=== PATIENT | male | born 1980 | race Caucasian/White ===

== ENCOUNTER 2016-09-18 09:36 | Outpatient (CLI) | payer MEDICAID | END 2016-09-18 09:37 | disposition home or self-care (01) | DX: E78.5 Hyperlipidemia, unspecified (principal); Z79.899 Other long term (current) drug therapy ==

== ENCOUNTER 2016-12-17 16:44 | Emergency (ER) | payer MEDICAID ==
[2016-12-17 16:52] VITALS: BP 148/87
--- NOTE | 2016-12-17 17:11 | ED Physician Documentation ---
PD HPI UPPER EXT INJURY - Stated complaint Stated Complaint: L HAND LAC - Chief complaint Chief Complaint: Ext Problem - History obtained from History obtained from: Patient - History of Present Illness Location: Left (He is up-to-date on tetanus, cut himself while washing dishes just prior to arrival at home. He has a small laceration to the left hand and was having trouble with bleeding.) Review of Systems Constitutional: reports: Reviewed and negative Cardiac: reports: Reviewed and negative Respiratory: reports: Reviewed and negative PD PAST MEDICAL HISTORY - Past Medical History Neuro: Headache/migraine : Kidney stones HEENT: Other Psych: Depression - Past Surgical History Past Surgical History: No HEENT: Tonsil/Adenoidectomy - Present Medications Home Medications: Ambulatory Orders Medication Instructions Recorded Confirmed Fluoxetine HCl 60 mg PO DAILY 01/31/14 12/17/16 Quetiapine Fumarate [Seroquel Xr] 150 mg PO DAILY 01/31/14 12/17/16 Sumatriptan Succinate [Imitrex] 100 mg PO BID PRN 01/31/14 12/17/16 rOPINIRole [Requip] 25 mg PO DAILY 01/31/14 12/17/16 Pravastatin Sodium 20 mg PO DAILY 12/17/16 12/17/16 - Allergies Allergies/Adverse Reactions: Allergies Allergy/AdvReac Type Severity Reaction Status Date / Time No Known Drug Allergies Allergy Verified 01/31/14 22:45 - Social History Does the pt smoke?: No Smoking Status: Never smoker Does the pt drink ETOH?: No Does the pt have substance abuse?: No - Immunizations Immunizations are current?: Yes PD ED PE NORMAL - Vitals Vital signs reviewed: Yes - General General: Alert and oriented X 3, No acute distress - Extremities Extremities: Other (On the palmar surface of the left hand there is a very shallow flap laceration which does not merit suturing, it was irrigated and dressed with Gelfoam and wrap during exam.) - Neuro Neuro: Alert and oriented X 3, Normal speech - Psych Psych: Normal mood, Normal affect Results - Vitals Vitals: Vital Signs - 24 hr 12/17/16 16:49 Temperature 36.4 C L Heart Rate 84 Respiratory 18 Rate Blood Pressure 148/87 H O2 Saturation 96 Oxygen O2 Source Room air Departure - Departure Disposition: 01 Home, Self Care Clinical Impression: Laceration of left hand Qualifiers: Encounter type: initial encounter Foreign body presence: without foreign body Qualified Code(s): S61.412A - Laceration without foreign body of left hand, initial encounter Condition: Good Record reviewed to determine appropriate education?: Yes Instructions: ED Laceration Hand Comments: Your blood pressure was elevated today on check in to the emergency department. This does not mean that you have hypertension, it is a common phenomenon to check into the emergency department and have elevated blood pressure. I recommend that you see your primary care physician within the week to have it rechecked when you're feeling better.
== END 2016-12-17 17:14 | disposition home or self-care (01) ==
LOC: ED 16:44
DX: S61.412A Laceration without foreign body of left hand, initial encounter (principal); W26.0XXA Contact with knife, initial encounter; Y93.G1 Activity, food preparation and clean up; Y92.010 Kitchen of single-family (private) house as the place of occurrence of the external cause; Z87.442 Personal history of urinary calculi; R03.0 Elevated blood-pressure reading, without diagnosis of hypertension
CPT/HCPCS: 99282; 99283

== ENCOUNTER 2017-02-19 09:00 | Outpatient (CLI) | payer MEDICAID ==
[2017-02-25 06:22] LABS: TEST RESULT REPORT (())
== END 2017-02-19 09:01 | disposition home or self-care (01) ==
LOC: LAB.R 09:00
PROVIDERS: ATTEND Nurse Practitioner Family
DX: D16.9 Benign neoplasm of bone and articular cartilage, unspecified (principal)
CPT/HCPCS: 81599; 86335

== ENCOUNTER 2017-06-09 09:54 | Outpatient (CLI) | payer MEDICAID ==
[2017-06-09 10:54] LABS: CHOL/HDL RATIO 5.8 (<5.0); CHOLESTEROL 191 mg/dL; HDL CHOLESTEROL 33 mg/dL; LDL/HDL RATIO 3.6 (<3.6); TRIGLYCERIDES 201 mg/dL; VLDL CHOLESTEROL 40 mg/dL
== END 2017-06-09 09:55 | disposition home or self-care (01) ==
LOC: LAB 09:54
PROVIDERS: ATTEND Nurse Practitioner Gerontology
DX: E78.5 Hyperlipidemia, unspecified (principal)
CPT/HCPCS: 36415; 80061

== ENCOUNTER 2017-11-25 12:53 | Emergency (ER) | payer MEDICAID ==
--- NOTE | 2017-11-25 14:14 | ED Physician Documentation ---
PD HPI URI - Stated complaint Stated Complaint: HEAD/SINUS PX - Chief complaint Chief Complaint: Heent - History obtained from History obtained from: Patient - History of Present Illness Timing - onset: How many weeks ago (2-3) Timing duration: Weeks (2-3) Timing details: Gradual onset, Waxing and waning Associated symptoms: Nasal congestion, Rhinorrhea (clear without blood nor purulence), Sinus pain, Other (left frontal and maxillary pressure and pain, intermittent degree of pain, with drainage of clear fluid at times. Left ear drainage at times too. Has had frontal surgery about 1 1/2 years ago due to osteoma. Prior inner ear vestibular shunt for vertigo. Has had prior ear tubes as well.). No: Fever, Sore throat Contributing factors: No: Sick contact, Travel, Immunocompromised Worsened by: Position (lying at side, left side worse) Similar symptoms before: Has not had sx before Review of Systems Constitutional: denies: Fever, Chills Nose: reports: Rhinorrhea / runny nose, Congestion, Sinus pressure / pain. denies: Epistaxis Throat: denies: Sore throat Cardiac: denies: Chest pain / pressure, Palpitations Respiratory: denies: Dyspnea, Cough GI: denies: Nausea, Vomiting, Diarrhea Skin: denies: Rash, Lesions PD PAST MEDICAL HISTORY - Past Medical History Past Medical History: Yes Neuro: Headache/migraine : Kidney stones HEENT: Other Psych: Depression Other Past Medical History: Osteoma, menieres - Past Surgical History Past Surgical History: Yes HEENT: Tonsil/Adenoidectomy - Present Medications Home Medications: Ambulatory Orders Medication Instructions Recorded Confirmed Fluoxetine HCl 60 mg PO DAILY 01/31/14 12/17/16 Quetiapine Fumarate [Seroquel Xr] 150 mg PO DAILY 01/31/14 12/17/16 Sumatriptan Succinate [Imitrex] 100 mg PO BID PRN 01/31/14 12/17/16 rOPINIRole [Requip] 25 mg PO DAILY 01/31/14 12/17/16 Pravastatin Sodium 20 mg PO DAILY 12/17/16 12/17/16 Dexamethasone [Decadron] 4 mg PO DAILY #5 tablet 11/25/17 Doxycycline Monohydrate 100 mg PO BID #14 tablet 11/25/17 Fluticasone [Flonase] 1 sprays THIAGO BID #1 bottle 11/25/17 HYDROcod/ACETAM 5/325 [[place] 5/325] 1 tab PO Q6H PRN #20 tablet 11/25/17 - Allergies Allergies/Adverse Reactions: Allergies Allergy/AdvReac Type Severity Reaction Status Date / Time No Known Drug Allergies Allergy Verified 11/25/17 13:02 - Social History Does the pt smoke?: No Smoking Status: Never smoker Does the pt drink ETOH?: No Does the pt have substance abuse?: No - Immunizations Immunizations are current?: Yes PD ED PE NORMAL - Vitals Vital signs reviewed: Yes - General General: Alert and oriented X 3, No acute distress, Well developed/nourished - HEENT HEENT: Ears normal (hearing aides in place. Left ear drum with possible small point hole about 8 o'clock position, likely residual from prior ear tube. 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 ), considered differential , d/w patient Departure - Departure Disposition: 01 Home, Self Care Clinical Impression: Sinusitis, acute Qualifiers: Sinusitis location: unspecified location Recurrence: non-recurrent Qualified Code(s): J01.90 - Acute sinusitis, unspecified Condition: Stable Record reviewed to determine appropriate education?: Yes Instructions: ED Headache Sinus, ED Sinusitis Abx Tx Follow-Up: Nohemi Schroeder ARNP [Primary Care Provider] - Prescriptions: Dexamethasone [Decadron] 4 mg PO DAILY #5 tablet Doxycycline Monohydrate 100 mg PO BID #14 tablet Fluticasone [Flonase] 1 sprays THIAGO BID #1 bottle HYDROcod/ACETAM 5/325 [[place] 5/325] 1 tab PO Q6H PRN #20 tablet PRN Reason: Pain Comments: Presume this is a sinus inflammation or infection at this point. There was some sinus opacification and mucosal thickening on CT scan to be consistent with that. Will try some Decadron oral steroid for 5 more days. Then start Flonase nasal steroid twice daily for 2-3 weeks after that. Continue Aicha once or twice daily. Use doxycycline twice daily for a week antibiotic for potential infection. Tylenol if needed for pains and add hydrocodone if needed for worse pain. Continue your usual migraine medicines as indicated. Follow- up with your primary care or your neurologist in the next week, call for an appointment. Discharge Date/Time: 11/25/17 17:06
[2017-11-25] MEDS ORDERED: DEXAMETHASONE 10 MG/ML VIAL PO STA (15:00)
[2017-11-25] MEDS ORDERED: HYDROcod/ACETAM 5/325 MG TABLET PO STA (15:00)
[2017-11-25] MEDS ORDERED: DOXYCYCLINE 100 MG TABLET PO STA (15:00)
[2017-11-25] MEDS ORDERED: CHERRY SYRUP 10 ML UDC PO ONE (15:17)
--- NOTE | 2017-11-25 16:20 | CT Report ---
EXAM: CT SINUS EXAM DATE: 11/25/2017 03:54 PM. HISTORY: Pressure, pain. COMPARISONS: 05/15/2016. TECHNIQUE: Routine multi-axial CT imaging performed through the sinuses. Iodinated IV contrast: None. Reconstructions: Sagittal and coronal. In accordance with CT protocol optimization, one or more of the following dose reduction techniques w ere utilized for this exam: automated exposure control, adjustment of mA and/or KV based on patient s ize, or use of iterative reconstructive technique. FINDINGS: RIGHT Frontal: Completely opacified. Ethmoid: Minimal upper anterior opacification. Otherwise clear. Maxillary: Minimal localized thickening in the bases. Sphenoid: Normal. Drainage Pathways: The frontal recess, ostiomeatal complex and sphenoethmoidal recess are patent and normal. LEFT Frontal: Completely opacified. Previous high-density lesion has been removed. Ethmoid: Minimal mucosal thickening. Maxillary: Minimal mucosal thickening. Sphenoid: Normal. Drainage Pathways: The frontal recess, ostiomeatal complex and sphenoethmoidal recess are patent and normal. Nasal Cavity: Normal. No mass or significant anatomic abnormality evident. Bones: Defects in frontal bone at the level of the sinus from previous surgery. Craniotomy defects bi laterally with associated surgical screws and plates. Prominent defects in medial maxillary sinus wal ls with deficiency of ethmoid cells. Orbits: Unremarkable. Other: None. IMPRESSION: Postoperative changes with residual frontal sinus opacification and associated findings. [facility] Referring Provider Line: [phone] SITE ID: [id number]
[2017-11-25 16:33] VITALS: BP 146/85
== END 2017-11-25 17:06 | disposition home or self-care (01) ==
LOC: ED 12:53
DX: J01.90 Acute sinusitis, unspecified (principal); H81.09 Meniere's disease, unspecified ear
CPT/HCPCS: 70486; 99283; A9270

== ENCOUNTER 2018-03-22 08:40 | Emergency (ER) | payer MEDICAID ==
[2018-03-22 08:50] VITALS: BP 149/88
--- NOTE | 2018-03-22 08:50 | ED Physician Documentation ---
PD HPI OPHTHO - Stated complaint Stated Complaint: L EYE SWELLING - History obtained from History obtained from: Patient - History of Present Illness Timing - onset: How many weeks ago (2-3 weeks of eyelid swelling and draining. Now with swelling of eyelid and conjunctiva today. Had used an OTC eye solution yesterday. PMD was going to Rx an eye abx ointment but it cost $300 and not covered by insurance. Was going to replace it with another, but caregiver says it was not at pharmacy the past 2 days and eye worse today.) Timing - duration: Weeks (2-3) Timing - details: Gradual onset, Waxing and waning (would improve with pus drainage from lid margin.) Location: Left Associated symptoms: Redness (had focal swelling and redness at upper eyelid for 2-3 weeks with occasional drainage of pus. It would recur then. Seen by PCP to get treatment and was Rx abx eye drops, but werre too expensive.), Swelling ( the past 2 days with swelling of eyelid and red around eye. No pain with eye movement.), Matting. No: FB sensation, Photophobia Contributing factors: No: Exposed to conjunctivitis, FB, Wears contacts Similar symptoms before: Has not had sx before Recently seen: Clinic Review of Systems Constitutional: denies: Fever, Chills Eyes: reports: Discharge. denies: Loss of vision, Decreased vision, Photophobia , Irritation Nose: denies: Rhinorrhea / runny nose, Congestion Throat: denies: Sore throat Respiratory: denies: Cough PD PAST MEDICAL HISTORY - Past Medical History Cardiovascular: None Respiratory: None Neuro: None : Kidney stones HEENT: Other Psych: Depression - Past Surgical History Past Surgical History: Yes HEENT: Tonsil/Adenoidectomy - Present Medications Home Medications: Ambulatory Orders Medication Instructions Recorded Confirmed Fluoxetine HCl 60 mg PO DAILY 01/31/14 12/17/16 Quetiapine Fumarate [Seroquel Xr] 150 mg PO DAILY 01/31/14 12/17/16 Sumatriptan Succinate [Imitrex] 100 mg PO BID PRN 01/31/14 12/17/16 rOPINIRole [Requip] 25 mg PO DAILY 01/31/14 12/17/16 Pravastatin Sodium 20 mg PO DAILY 12/17/16 12/17/16 Fluticasone [Flonase] 1 sprays THIAGO BID #1 bottle 11/25/17 Doxycycline Monohydrate 100 mg PO BID #10 tablet 03/22/18 Ketotifen Fumarate 2 drops OP QID #1 bottle 03/22/18 Sulfacetamide 10% Ophth Drops 2 drops LEFTEYE Q3H #1 bottle 03/22/18 [Sulfamide 10% Ophth Drops] - Allergies Allergies/Adverse Reactions: Allergies Allergy/AdvReac Type Severity Reaction Status Date / Time No Known Drug Allergies Allergy Verified 03/22/18 08:50 - Social History Does the pt smoke?: No Smoking Status: Never smoker Does the pt drink ETOH?: No Does the pt have substance abuse?: No - Immunizations Immunizations are current?: Yes PD ED PE NORMAL - Vitals Vital signs reviewed: Yes - General General: Alert and oriented X 3, No acute distress, Well developed/nourished - HEENT HEENT: PERRL, EOMI (no pain on eye movement), Ears normal, Pharynx benign - Neck Neck: Supple, no meningeal sign, No adenopathy - Cardiac Cardiac: RRR, No murmur - Respiratory Respiratory: Clear bilaterally PD ED PE EXPANDED - Eyes Eyes: Eyelid swelling (general swelling with focal firmer induration lateral lid. ), Eyelid erythema (left upper), Anterior chambers clear, Normal fundi. No : Exudate Results - Vitals Vitals: Vital Signs - 24 hr 03/22/18 08:49 Temperature 36.1 C L Heart Rate 83 Respiratory 20 Rate Blood Pressure 149/88 H O2 Saturation 98 Oxygen O2 Source Room air PD MEDICAL DECISION MAKING - ED course Complexity details: considered differential, d/w patient - Sepsis Event Vital Signs: Vital Signs - 24 hr 03/22/18 08:49 Temperature 36.1 C L Heart Rate 83 Respiratory 20 Rate Blood Pressure 149/88 H O2 Saturation 98 Oxygen O2 Source Room air Departure - Departure Disposition: 01 Home, Self Care Clinical Impression: Infection of eyelid Conjunctivitis, acute Qualifiers: Acute conjunctivitis type: unspecified Laterality: left Qualified Code(s): H10.32 - Unspecified acute conjunctivitis, left eye Condition: Stable Record reviewed to determine appropriate education?: Yes Instructions: ED [place] Follow-Up: Nohemi Schroeder ARNP [Primary Care Provider] - Prescriptions: Doxycycline Monohydrate 100 mg PO BID #10 tablet Ketotifen Fumarate 2 drops OP QID #1 bottle Sulfacetamide 10% Ophth Drops [Sulfamide 10% Ophth Drops] 2 drops LEFTEYE Q3H # 1 bottle Comments: Use sulfa Sulamyd sulfacetamide eyedrops as well as the doxycycline oral antibiotic for the infection of the eyelid and now around the eyelid. The swelling of the eye and eyelid do appear like an allergic response. Stop previous drops that you have been using for the eye. Use ketotifen antihistamine eyedrops to help reduce some of the swelling and inflammation. The above should help with the swelling as well as infection. Recheck if not improved over the next 2-3 days. Discharge Date/Time: 03/22/18 09:44
[2018-03-22] MEDS ORDERED: DOXYCYCLINE 100 MG TABLET PO STA (09:27)
[2018-03-22] MEDS ORDERED: CETIRIZINE 10 MG TABLET PO STA (09:27)
== END 2018-03-22 09:44 | disposition home or self-care (01) ==
LOC: ED 08:40
DX: H01.9 Unspecified inflammation of eyelid (principal); H10.32 Unspecified acute conjunctivitis, left eye
CPT/HCPCS: 99283; A9270

== ENCOUNTER 2018-12-11 11:47 | Outpatient (CLI) | payer MEDICAID ==
--- NOTE | 2018-12-11 16:50 | XRAY Report ---
Reason: SKIN NODULES L Procedure Date: 12/11/2018 Accession Number: [id number] / [id number] Procedure: XRN - Finger(s) LT CPT Code: FULL RESULT: EXAM: RIGHT/LEFT 1st/2nd/3rd/4th/5th DIGIT RADIOGRAPHY EXAM DATE: 12/11/2018 12:00 PM. CLINICAL HISTORY: SKIN NODULES L. COMPARISON: None. TECHNIQUE: 3 views. FINDINGS: Bones: Normal. No fracture or bone lesion. Joints: Normal. No subluxations. Soft Tissues: Normal. No soft tissue swelling. IMPRESSION: No acute displaced fracture or malalignment. No osseous abnormality. [facility]
== END 2018-12-11 11:48 | disposition home or self-care (01) ==
LOC: DI.N 11:47
PROVIDERS: ATTEND Nurse Practitioner Gerontology
DX: R22.32 Localized swelling, mass and lump, left upper limb (principal)
CPT/HCPCS: 73140

== ENCOUNTER 2019-01-04 15:08 | Outpatient (CLI) | payer MEDICAID ==
--- NOTE | 2019-01-04 17:03 | Ultrasound Report ---
Reason: SKIN NODULE OF FINGER,LEFT,GANGLION CYST Procedure Date: 01/04/2019 Accession Number: [id number] / [id number] Procedure: US - Ext Limited Non Vascular CPT Code: FULL RESULT: EXAM: RIGHT/LEFT UPPER EXTREMITY ULTRASOUND - LIMITED EXAM DATE: 01/04/2019 04:01 PM. CLINICAL HISTORY: Soft tissue mass adjacent to left fifth finger COMPARISON: None. TECHNIQUE: Real-time scanning was performed with static images obtained. FINDINGS: There is a round solid mass with increased vascularity measuring 10 x 6 x 10 mm diameter, located dorsal to the fifth proximal phalanx. IMPRESSION: There is a solid 10 mm maximal diameter mass adjacent to the dorsal surface left fifth proximal phalanx. [facility]
== END 2019-01-04 15:09 | disposition home or self-care (01) ==
LOC: DI 15:08
PROVIDERS: ATTEND Nurse Practitioner Gerontology
DX: R22.32 Localized swelling, mass and lump, left upper limb (principal)
CPT/HCPCS: 76882

== ENCOUNTER 2019-02-23 | Day surgery (SDC) | payer MEDICAID | END 2019-02-23 06:04 | disposition home or self-care (01) | PROC: 0JBK0ZZ Excision of Left Hand Subcutaneous Tissue and Fascia, Open Approach (ICD-10-PCS; principal; 2019-02-23) | DX: D48.1 Neoplasm of uncertain behavior of connective and other soft tissue (principal); G47.30 Sleep apnea, unspecified | CPT/HCPCS: 26115; J7120 ==

== ENCOUNTER 2019-04-05 08:57 | Outpatient (CLI) | payer MEDICAID ==
[2019-04-05 09:18] LABS: BASOPHILS % (AUTO) 0.3 %; EOSINOPHILS # (AUTO) 0.1 10^3/uL (0.0-0.7); EOSINOPHILS % (AUTO) 2.2 %; LYMPHOCYTES # (AUTO) 1.9 10^3/uL (1.5-3.5); LYMPHOCYTES % (AUTO) 31.5 %; MEAN CORPUSCULAR HEMOGLOBIN 31.3 pg (27.0-31.0); MEAN CORPUSCULAR HGB CONC 33.3 g/dL (32.0-36.0); MEAN PLATELET VOLUME 10.4 fL (7.4-11.4); MONOCYTES # (AUTO) 0.4 10^3/uL (0.0-1.0); MONOCYTES % (AUTO) 7.4 %; NEUTROPHILS # (AUTO) 3.5 10^3/uL (1.5-6.6); NEUTROPHILS % (AUTO) 58.1 %; PLT - PLATELET COUNT 143 10^3/uL (130-450); RED CELL DISTRIBUTION WIDTH 13.8 % (12.0-15.0); WHITE BLOOD COUNT 5.9 x10^3/uL (4.8-10.8)
[2019-04-05 09:37] LABS: ALBUMIN 4.3 g/dL (3.2-5.5); ALBUMIN/GLOBULIN RATIO 1.3 (1.0-2.2); ALKALINE PHOSPHATASE 48 IU/L (42-121); ALT ALANINE AMINOTRANSFERASE 23 IU/L (10-60); AST ASPARTATE AMINOTRANSFERASE 18 IU/L (10-42); BILIRUBIN,TOTAL 0.4 mg/dL (0.2-1.0); BUN - BLOOD UREA NITROGEN 10 mg/dL (6-20); CALCIUM 9.4 mg/dL (8.5-10.3); CARBON DIOXIDE - CO2 31 mmol/L (21-32); CHLORIDE 101 mmol/L (101-111); CHOL/HDL RATIO 4.3 (<5.0); CHOLESTEROL 169 mg/dL; CREATININE 0.7 mg/dL (0.6-1.2); GFR - MDRD 126 (>89); GLUCOSE 88 mg/dL (70-100); HDL CHOLESTEROL 39 mg/dL; LDL CHOLESTEROL,CALCULATED 107 mg/dL; LDL/HDL RATIO 2.7 (<3.6); SODIUM 140 mmol/L (135-145); TOTAL PROTEIN 7.7 g/dL (6.7-8.2); VLDL CHOLESTEROL 23 mg/dL
== END 2019-04-05 08:58 | disposition home or self-care (01) ==
LOC: LAB 08:57
PROVIDERS: ATTEND Nurse Practitioner Gerontology
DX: E78.5 Hyperlipidemia, unspecified (principal); Z79.899 Other long term (current) drug therapy
CPT/HCPCS: 36415; 80053; 80061; 83721; 85025

== ENCOUNTER 2020-08-07 06:58 | Outpatient (CLI) | payer MEDICAID ==
[2020-08-07 07:20] LABS: BASOPHILS % (AUTO) 0.6 %; EOSINOPHILS # (AUTO) 0.1 10^3/uL (0.0-0.7); EOSINOPHILS % (AUTO) 1.9 %; HGB - HEMOGLOBIN 15.1 g/dL (14.0-18.0); LYMPHOCYTES # (AUTO) 1.6 10^3/uL (1.5-3.5); LYMPHOCYTES % (AUTO) 29.7 %; MEAN CORPUSCULAR HEMOGLOBIN 30.1 pg (27.0-31.0); MEAN CORPUSCULAR HGB CONC 32.6 g/dL (32.0-36.0); MEAN CORPUSCULAR VOLUME 92.2 fL (80.0-94.0); MEAN PLATELET VOLUME 10.3 fL (7.4-11.4); MONOCYTES # (AUTO) 0.3 10^3/uL (0.0-1.0); MONOCYTES % (AUTO) 5.8 %; NEUTROPHILS # (AUTO) 3.3 10^3/uL (1.5-6.6); NEUTROPHILS % (AUTO) 61.4 %; PLT - PLATELET COUNT 175 10^3/uL (130-450); RED BLOOD COUNT 5.02 10^6/uL (4.70-6.10); RED CELL DISTRIBUTION WIDTH 13.1 % (12.0-15.0); WHITE BLOOD COUNT 5.3 x10^3/uL (4.8-10.8)
[2020-08-07 07:37] LABS: ALBUMIN 4.2 g/dL (3.2-5.5); ALBUMIN/GLOBULIN RATIO 1.2 (1.0-2.2); ALKALINE PHOSPHATASE 57 IU/L (42-121); ALT ALANINE AMINOTRANSFERASE 26 IU/L (10-60); AST ASPARTATE AMINOTRANSFERASE 17 IU/L (10-42); BILIRUBIN,TOTAL 0.4 mg/dL (0.2-1.0); BUN - BLOOD UREA NITROGEN 17 mg/dL (6-20); CALCIUM 9.4 mg/dL (8.5-10.3); CARBON DIOXIDE - CO2 28 mmol/L (21-32); CHLORIDE 100 mmol/L (101-111); CHOL/HDL RATIO 5.4 (<5.0); CHOLESTEROL 210 mg/dL; CREATININE 0.9 mg/dL (0.6-1.2); GLUCOSE 102 mg/dL (70-100); HDL CHOLESTEROL 39 mg/dL; LDL CHOLESTEROL,CALCULATED 151 mg/dL; LDL/HDL RATIO 3.9 (<3.6); SODIUM 138 mmol/L (135-145); TOTAL PROTEIN 7.6 g/dL (6.7-8.2); VLDL CHOLESTEROL 20 mg/dL
[2020-08-07 13:09] LABS: HEMOGLOBIN A1c% 5.6 % (4.27-6.07)
== END 2020-08-07 06:59 | disposition home or self-care (01) ==
LOC: LAB 06:58
PROVIDERS: ATTEND Family Medicine
DX: E78.5 Hyperlipidemia, unspecified (principal); Z79.899 Other long term (current) drug therapy
CPT/HCPCS: 36415; 80053; 80061; 83036; 83721; 85025

== ENCOUNTER 2020-12-29 07:40 | Outpatient (CLI) | payer MEDICAID ==
[2020-12-29 08:16] LABS: CHOL/HDL RATIO 4.3 (<5.0); CHOLESTEROL 169 mg/dL; HDL CHOLESTEROL 39 mg/dL; LDL CHOLESTEROL,CALCULATED 109 mg/dL; LDL/HDL RATIO 2.8 (<3.6); TRIGLYCERIDES 106 mg/dL; VLDL CHOLESTEROL 21 mg/dL
== END 2020-12-29 07:41 | disposition home or self-care (01) ==
LOC: LAB 07:40
PROVIDERS: ATTEND Family Medicine
DX: E78.5 Hyperlipidemia, unspecified (principal)
CPT/HCPCS: 36415; 80061; 83721

== ENCOUNTER 2022-05-22 08:06 | Outpatient (CLI) | payer MEDICAID ==
[2022-05-22 08:35] LABS: BASOPHILS % (AUTO) 0.6 %; EOSINOPHILS # (AUTO) 0.1 10^3/uL (0.0-0.7); HCT - HEMATOCRIT 44.6 % (42.0-52.0); HGB - HEMOGLOBIN 14.7 g/dL (14.0-18.0); LYMPHOCYTES # (AUTO) 1.4 10^3/uL (1.5-3.5); LYMPHOCYTES % (AUTO) 27.3 %; MEAN CORPUSCULAR HEMOGLOBIN 29.8 pg (27.0-31.0); MEAN CORPUSCULAR VOLUME 90.3 fL (80.0-94.0); MEAN PLATELET VOLUME 9.5 fL (7.4-11.4); MONOCYTES # (AUTO) 0.4 10^3/uL (0.0-1.0); MONOCYTES % (AUTO) 7.2 %; NEUTROPHILS # (AUTO) 3.1 10^3/uL (1.5-6.6); NEUTROPHILS % (AUTO) 62.1 %; PLT - PLATELET COUNT 205 10^3/uL (130-450); RED BLOOD COUNT 4.94 10^6/uL (4.70-6.10); RED CELL DISTRIBUTION WIDTH 12.8 % (12.0-15.0)
[2022-05-22 08:51] LABS: ALBUMIN 4.3 g/dL (3.2-5.5); ALBUMIN/GLOBULIN RATIO 1.3 (1.0-2.2); BILIRUBIN,TOTAL 0.3 mg/dL (0.2-1.0); CALCIUM 9.4 mg/dL (8.5-10.3); CREATININE 0.9 mg/dL (0.6-1.2); POTASSIUM 4.4 mmol/L (3.5-5.0); TOTAL PROTEIN 7.7 g/dL (6.7-8.2)
[2022-05-22 09:01] LABS: THYROID STIMULATING HORMONE 1.66 uIU/mL (0.34-5.60)
[2022-05-22 11:44] LABS: ESTIMATED AVERAGE GLUCOSE 108 mg/dL (70-100); HEMOGLOBIN A1c% 5.4 % (4.27-6.07)
== END 2022-05-22 08:07 | disposition home or self-care (01) ==
LOC: LAB 08:06
PROVIDERS: ATTEND Physician Assistant
DX: Z79.899 Other long term (current) drug therapy (principal)
CPT/HCPCS: 36415; 80050; 83036

== ENCOUNTER 2022-05-29 11:18 | Outpatient (CLI) | payer MEDICAID ==
--- NOTE | 2022-05-29 12:57 | XRAY Report ---
PROCEDURE: Cervical Spine Comp w/Flex/Ext INDICATIONS: RADICULOPATHY TECHNIQUE: 7 views of the cervical spine were acquired. COMPARISON: None. FINDINGS: Bones: No fractures or dislocations to the T1 level. Prominent osteophytes at C5 and C6. No suspicio us bony lesions. Mild decrease in range of motion between flexion and extension, with preserved aroldo l bony alignment. Soft tissues: Prevertebral soft tissues are normal in thickness. Cochlear implants. IMPRESSION: Mild degenerative in the cervical spine. Mild decrease in range of motion with flexion and extension. Reviewed by: Reza Ely MD on 05/29/2022 11:56 AM CALE Approved by: Reza Ely MD on 05/29/2022 11:56 AM CALE Station ID: [id number]
--- NOTE | 2022-05-29 13:01 | XRAY Report ---
PROCEDURE: Thoracic Spine 2 View INDICATIONS: RADICULOPATHY TECHNIQUE: 4 views of the thoracic spine were acquired. COMPARISON: CT abdomen pelvis 09/08/2013. FINDINGS: Bones: Chronic T12 compression fracture No dislocations. No suspicious bony lesions. 12 pairs of r ibs are noted, and appear intact where visualized. Degenerative change in the cervical spine. Soft tissues: No paravertebral stripe thickening. IMPRESSION: T12 compression fracture is unchanged. Reviewed by: Reza Ely MD on 05/29/2022 11:59 AM CALE Approved by: Reza Ely MD on 05/29/2022 11:59 AM CALE Station ID: [id number]
--- NOTE | 2022-05-29 13:04 | XRAY Report ---
PROCEDURE: Lumbar Spine 2 View INDICATIONS: RADICULOPATHY TECHNIQUE: 2 views of the lumbar spine were acquired. COMPARISON: CT abdomen pelvis 09/08/2013. FINDINGS: Bones: 5 [id number] vertebrae are present. Anterolisthesis of L4 on L5 measuring 1.1 cm (previo usly 0.7 cm in 2014). There is L4 pars defect. Facet joint hypertrophy. Sacralization of L5. T12 comp ression fracture appears unchanged. No suspicious bony lesions. Soft tissues: Overlying bowel gas pattern is normal. No suspicious soft tissue calcifications. IMPRESSION: Worsened anterolisthesis of L4 on L5 measuring 1.1 cm. Bilateral L4 pars defect that are seen on prio r CT. Sacralization of L5. T12 compression fracture appears unchanged. Reviewed by: Reza Ely MD on 05/29/2022 12:02 PM CALE Approved by: Reza Ely MD on 05/29/2022 12:02 PM CALE Station ID: [id number]
== END 2022-05-29 11:19 | disposition home or self-care (01) ==
LOC: DI 11:18
PROVIDERS: ATTEND Physician Assistant
DX: M48.56XD Collapsed vertebra, not elsewhere classified, lumbar region, subsequent encounter for fracture with routine healing (principal); M48.54XD Collapsed vertebra, not elsewhere classified, thoracic region, subsequent encounter for fracture with routine healing; M47.22 Other spondylosis with radiculopathy, cervical region

== ENCOUNTER 2022-11-19 08:48 | Outpatient (CLI) | payer MEDICAID ==
--- NOTE | 2022-11-19 16:58 | MRI Report ---
PROCEDURE: LUMBAR SPINE WO INDICATIONS: LUMBAR RADIULOPATHY, OSTEOPHYTE OF VERTEBRAE TECHNIQUE: Noncontrast sagittal T1 spin echo and T2 fast echo, sagittal STIR, axial T1 and T2 fast spin echo thr ough the lumbar spine. In cases with scoliosis, additional coronal T2 fast spin echo may be performe d. COMPARISON: X-ray lumbar spine 05/29/2022 FINDINGS: Image quality: Excellent. Alignment and Curvature: There is 0.7 cm anterolisthesis of L5 on S1, appearing less prominent when compared to 2021 measuring 1.1 cm. There is appearance of transitional anatomy. In keeping with prior nomenclature, vertebral bodies are labeled one through 5. Bone Marrow: Marrow is of normal overall signal. There is an old wedge deformity the superior endpla te at T12. No acute compression deformities are present. Spinal Cord: Conus medullaris terminates at the L2. level. Visualized cord demonstrates normal sign al and size. Paraspinous Soft Tissues: No paravertebral masses. Discs: Moderate desiccation is present L5-S1, mild L4-5. T12-L1: No disc bulge, spinal stenosis or foraminal narrowing. L1-L2: No disc bulge, spinal stenosis or foraminal narrowing. L2-L3: No disc bulge, spinal stenosis or foraminal narrowing. L3-L4: No disc bulge, spinal stenosis or foraminal narrowing. L4-L5: Pars defect is present at this level. No spinal stenosis. Severe bilateral foraminal narrowi ng with compression of the exiting L5 nerve roots bilaterally. L5-S1: No disc bulge, spinal stenosis or foraminal narrowing. IMPRESSION: Grade 1 anterolisthesis, slightly less prominent L4 on L5, with pars defect and severe bilateral fora rasheeda narrowing. Reviewed by: Dena Gonzalez MD on 11/19/2022 4:57 PM PDT Approved by: Dena Gonzalez MD on 11/19/2022 4:57 PM PDT Station ID: [id number]
--- NOTE | 2022-11-19 17:06 | MRI Report ---
PROCEDURE: CERVICAL SPINE WO INDICATIONS: LUMBAR RADIULOPATHY, OSTEOPHYTE OF VERTEBRAE TECHNIQUE: Noncontrast sagittal T1 spin echo and T2 fast spin echo, sagittal STIR, foraminal oblique sagittal T2 fast spin echo, and axial gradient echo or T2 fast spin echo through the cervical spine. COMPARISON: None. FINDINGS: Image quality: Excellent. Alignment and Curvature: There is mild straightening of normal cervical curvature. Bone Marrow: Marrow demonstrates normal overall signal. Spinal Cord: Visualized spinal cord has normal size and signal. No cerebellar tonsillar herniation. Paraspinous Soft Tissues: No paravertebral masses. Prevertebral soft tissues are normal in thicknes s. C2-C3: Mild disc bulge without spinal stenosis or foraminal narrowing. C3-C4: Mild disc bulge with mild spinal stenosis. Mild right foraminal narrowing. C4-C5: Mild disc bulge with minimal spinal stenosis. Minimal right foraminal narrowing. C5-C6: Mild disc bulge with minimal spinal stenosis. No foraminal narrowing. C6-C7: Minimal disc bulge without gross spinal stenosis or foraminal narrowing. C7-T1: No disc bulge, spinal stenosis or foraminal narrowing. IMPRESSION: Multilevel mild disc bulges. Multilevel minimal to mild spinal stenosis predominately secondary to disc bulge. Reviewed by: Dena Gonzalez MD on 11/19/2022 5:05 PM PDT Approved by: Dena Gonzalez MD on 11/19/2022 5:05 PM PDT Station ID: [id number]
== END 2022-11-19 08:49 | disposition home or self-care (01) ==
LOC: DI 08:48
PROVIDERS: ATTEND Physician Assistant
DX: M51.16 Intervertebral disc disorders with radiculopathy, lumbar region (principal); M48.061 Spinal stenosis, lumbar region without neurogenic claudication; M43.16 Spondylolisthesis, lumbar region

== ENCOUNTER 2023-03-20 09:25 | Outpatient (CLI) | payer MEDICAID ==
--- NOTE | 2023-03-20 13:09 | MRI Report ---
PROCEDURE: THORACIC SPINE WO INDICATIONS: THORACIC SPINE PAIN TECHNIQUE: Noncontrast sagittal T1 spine echo and T2 fast spin echo, sagittal STIR, axial T1 and T2 fast spin ec ho through the thoracic spine. COMPARISON: X-ray thoracic spine 05/29/2022. FINDINGS: Image quality: Excellent. Alignment and Curvature: There is normal bony alignment. Bone Marrow: Marrow is of normal overall signal. Chronic anterior wedging of the T12 vertebral body . No acute vertebral body compression fractures. Spinal Cord: Visualized spinal cord is normal in size and signal. Paraspinous Soft Tissues: No paravertebral masses. Miscellaneous: On axial images, central canal and foramina appear widely patent at all scanned level s. Mild degenerative changes with disc height loss and desiccation and marginal spurring. IMPRESSION: 1.Mild degenerative changes of the thoracic spine. No central canal or neuroforaminal stenosis. 2.Chronic anterior wedging of the T12 vertebral body. No acute vertebral body compression fractures. Reviewed by: Ron Raymond MD on 03/20/2023 1:08 PM PDT Approved by: Ron Raymond MD on 03/20/2023 1:08 PM PDT Station ID: [id number]
== END 2023-03-20 09:26 | disposition home or self-care (01) ==
LOC: DI 09:25
PROVIDERS: ATTEND Orthopaedic Surgery Orthopaedic Surgery of the Spine
DX: M47.814 Spondylosis without myelopathy or radiculopathy, thoracic region (principal)

== ENCOUNTER 2023-07-14 23:10 | Outpatient (CLI) | payer MEDICAID | END 2023-07-14 23:11 | disposition critical access hospital (66) | LOC: EMS 23:10 | DX: M54.9 Dorsalgia, unspecified (principal); R41.0 Disorientation, unspecified; M79.89 Other specified soft tissue disorders; Z98.890 Other specified postprocedural states | CPT/HCPCS: A0425; A0427; A0999 ==

== ENCOUNTER 2023-07-14 23:21 | Emergency (ER) | payer MEDICAID ==
--- NOTE | 2023-07-14 23:45 | ED Physician Documentation ---
PD HPI ALTERED MENTAL STATUS - Stated complaint Stated Complaint: BACK PAIN, CONFUSION - Chief complaint Chief Complaint: Neuro - History obtained from History obtained from: Patient, Family - History of Present Illness Timing - onset: Today Timing - duration: Hours Timing - details: Gradual onset, Still present Quality / character: Confused, Agitated, Combative Associated symptoms: Other (back pain with angry redness to the skin surrounding surgical site.). No: Fever, Stiff neck, Dyspnea, Cough, NVD, General weakness, Focal weakness, Seizure activity, Syncope Contributing factors: Other (back surgery 3 days ago) Basline status: Alert and oriented X 3, Ambulatory, Independent Similar symptoms before: Has not had sx before Recently seen: Surgery - Additional information Additional information: Perry Nunez is a 42-year-old male with a prior history of benign brain tumors x 2 who has had a procedure done to his at [facility] 3 days ago. He has a cage put in. Today at home his noted that he began to act oddly and he has become angry and confused. She knows he has never acted this way and their more than 20 years of marriage. He has not had fever he has had an increase in his back pain and redness that is spreading. He is brought to the hospital by ambulance this evening for evaluation. Review of Systems Constitutional: denies: Fever Eyes: denies: Decreased vision Nose: denies: Rhinorrhea / runny nose, Congestion Throat: denies: Sore throat Respiratory: denies: Cough GI: denies: Vomiting, Diarrhea : denies: Dysuria, Frequency Musculoskeletal: reports: Back pain. denies: Neck pain Neurologic: denies: Generalized weakness, Focal weakness, Numbness PD PAST MEDICAL HISTORY - Past Medical History Cardiovascular: High cholesterol Respiratory: Sleep apnea, CPAP use Neuro: None Endocrine/Autoimmune: None GI: None : Kidney stones HEENT: Chronic hearing loss, Other Psych: Depression Musculoskeletal: Chronic back pain Derm: None - Past Surgical History Past Surgical History: Yes General: Other HEENT: Tonsil/Adenoidectomy - Present Medications Home Medications: Ambulatory Orders Medication Instructions Recorded Confirmed Fluoxetine HCl 60 mg PO DAILY 01/31/14 02/23/19 Quetiapine Fumarate [Seroquel Xr] 150 mg PO DAILY 01/31/14 02/23/19 Sumatriptan Succinate [Imitrex] 100 mg PO BID PRN 01/31/14 02/23/19 rOPINIRole [Requip] 25 mg PO DAILY 01/31/14 02/23/19 Pravastatin Sodium 20 mg PO DAILY 12/17/16 02/23/19 - Allergies Allergies/Adverse Reactions: Allergies Allergy/AdvReac Type Severity Reaction Status Date / Time No Known Drug Allergies Allergy Verified 03/22/18 08:50 - Social History Does the pt smoke?: No Smoking Status: Never smoker Does the pt drink ETOH?: No Does the pt have substance abuse?: No - Immunizations Immunizations are current?: Yes PD ED PE NORMAL - Vitals Vital signs reviewed: Yes (tachy ) - General General: Well developed/nourished, Other (42-year-old male with eyes wide open is rocking back and forth on the gurney and talking about 3 things that do not make sense together.) - HEENT HEENT: PERRL, EOMI, Other (There are healed craniotomy scars to the scalp there is no evidence of acute trauma and the patient is wearing hearing aid.) - Neck Neck: Supple, no meningeal sign, No bony TTP, Other (I am not able to elicit nuchal rigidity.) - Cardiac Cardiac: No murmur, Other (Tachycardic to 110) - Respiratory Respiratory: No respiratory distress, Clear bilaterally - Abdomen Abdomen: Normal bowel sounds, Soft, Non tender, Non distended - Back Back: Other (Examination of the back shows 3 bandaged areas from recent surgery and nonblanching erythema to the central portion of the surgical site and blanching erythema superiorly and laterally bilaterally) - Derm Derm: Warm and dry, Other (as above ) - Extremities Extremities: No deformity, No edema - Neuro Neuro: hides soaker 2-12 intact, No motor deficit, No sensory deficit, Other (Content of speech is ) Eye Opening: Spontaneous Motor: Obeys Commands Verbal: Oriented GCS Score: 15 - Psych Psych: Other (mood is effusive affect is labile) Results - Vitals Vitals: Vital Signs - 24 hr 07/14/23 07/14/23 07/15/23 23:29 23:46 00:16 Temperature 37.0 C Heart Rate 109 H 109 H 105 H Respiratory 22 18 24 Rate Blood Pressure 94/77 94/77 145/129 H O2 Saturation 97 97 96 07/15/23 07/15/23 07/15/23 01:30 02:00 02:30 Temperature Heart Rate 101 H 102 H 98 Respiratory 20 18 24 Rate Blood Pressure 123/92 H 123/92 H 136/93 H O2 Saturation 95 95 98 07/15/23 03:00 Temperature Heart Rate 95 Respiratory 22 Rate Blood Pressure 157/77 H O2 Saturation 98 Oxygen O2 Source Room air - Labs Labs: Laboratory Tests 07/14/23 07/14/23 07/14/23 23:37 23:37 23:37 WBC 8.9 RBC 3.75 L Hgb 11.3 L Hct 32.8 L MCV 87.5 MCH 30.1 MCHC 34.5 RDW 13.2 Plt Count 208 MPV 10.3 Neut # (Auto) 5.9 Lymph # (Auto) 1.7 [place] # (Auto) 0.9 Eos # (Auto) 0.2 Baso # (Auto) 0.1 Absolute Nucleated RBC 0.00 Nucleated RBC % 0.0 ESR Sodium Potassium Chloride Carbon Dioxide Anion Gap BUN Creatinine Estimated GFR (MDRD) Glucose Lactic Acid 1.9 Calcium Total Bilirubin AST ALT Alkaline Phosphatase C-Reactive Protein Total Protein Albumin Globulin Albumin/Globulin Ratio Urine Color Urine Clarity Urine pH Ur Specific [place] Urine Protein Urine Glucose (UA) Urine Ketones Urine Occult Blood Urine Nitrite Urine Bilirubin Urine Urobilinogen Ur Leukocyte Esterase Ur Microscopic Review Urine Culture Comments Urine Opiates Screen Ur Buprenorphine Scrn Ur Oxycodone Screen Urine Methadone Screen Ur Barbiturates Screen Ur Tricyclics Screen Ur Phencyclidine Scrn Ur Amphetamine Screen U Methamphetamines Scrn U Benzodiazepines Scrn Urine Cocaine Screen U Cannabinoids Screen Ur Drug Screen Comment Ethyl Alcohol < 10.0 07/14/23 07/15/23 07/15/23 23:37 00:00 00:00 WBC RBC Hgb Hct MCV MCH MCHC RDW Plt Count MPV Neut # (Auto) Lymph # (Auto) [place] # (Auto) Eos # (Auto) Baso # (Auto) Absolute Nucleated RBC Nucleated RBC % ESR 76 H Sodium 136 Potassium 3.4 L Chloride 100 L Carbon Dioxide 22 Anion Gap 14.0 H BUN 17 Creatinine 0.8 Estimated GFR (MDRD) 106 Glucose 95 Lactic Acid Calcium 8.9 Total Bilirubin 0.5 AST 27 ALT 23 Alkaline Phosphatase 71 C-Reactive Protein 11.1 H Total Protein 6.8 Albumin 3.9 Globulin 2.9 Albumin/Globulin Ratio 1.3 Urine Color Urine Clarity Urine pH Ur Specific [place] Urine Protein Urine Glucose (UA) Urine Ketones Urine Occult Blood Urine Nitrite Urine Bilirubin Urine Urobilinogen Ur Leukocyte Esterase Ur Microscopic Review Urine Culture Comments Urine Opiates Screen Ur Buprenorphine Scrn Ur Oxycodone Screen Urine Methadone Screen Ur Barbiturates Screen Ur Tricyclics Screen Ur Phencyclidine Scrn Ur Amphetamine Screen U Methamphetamines Scrn U Benzodiazepines Scrn Urine Cocaine Screen U Cannabinoids Screen Ur Drug Screen Comment Ethyl Alcohol 07/15/23 01:30 WBC RBC Hgb Hct MCV MCH MCHC RDW Plt Count MPV Neut # (Auto) Lymph # (Auto) [place] # (Auto) Eos # (Auto) Baso # (Auto) Absolute Nucleated RBC Nucleated RBC % ESR Sodium Potassium Chloride Carbon Dioxide Anion Gap BUN Creatinine Estimated GFR (MDRD) Glucose Lactic Acid Calcium Total Bilirubin AST ALT Alkaline Phosphatase C-Reactive Protein Total Protein Albumin Globulin Albumin/Globulin Ratio Urine Color YELLOW Urine Clarity CLEAR Urine pH 7.0 Ur Specific [place] <=1.005 Urine Protein NEGATIVE Urine Glucose (UA) NEGATIVE Urine Ketones NEGATIVE Urine Occult Blood NEGATIVE Urine Nitrite NEGATIVE Urine Bilirubin NEGATIVE Urine Urobilinogen 0.2 (NORMAL) Ur Leukocyte Esterase NEGATIVE Ur Microscopic Review NOT INDICATED Urine Culture Comments NOT INDICATED Urine Opiates Screen NEGATIVE Ur Buprenorphine Scrn NEGATIVE Ur Oxycodone Screen POSITIVE H Urine Methadone Screen NEGATIVE Ur Barbiturates Screen NEGATIVE Ur Tricyclics Screen POSITIVE H Ur Phencyclidine Scrn NEGATIVE Ur Amphetamine Screen NEGATIVE U Methamphetamines Scrn NEGATIVE U Benzodiazepines Scrn NEGATIVE Urine Cocaine Screen NEGATIVE U Cannabinoids Screen POSITIVE H Ur Drug Screen Comment CUTOFF CONC BELOW: Ethyl Alcohol - Rads (name of study) CT head Relevant Findings:: Prelim report reviewed (Impression: No intracranial pathology.), EMP independent interpretation of test, See rad report chest Relevant Findings:: Prelim report reviewed (In Thai: No acute cardiopulmonary process.), EMP independent interpretation of test, See rad report PD Medical Decision Making - ED course Complexity details: reviewed old records, reviewed results, re-evaluated patient, considered differential, d/w patient, d/w family, d/w food consultant (Dr. Couch surgeon at [facility] recommends CT head CRP and ESR. ) Reviewed Lab Results: We reviewed a complete blood count showing a white blood cell count of 8.9 hemoglobin of 11.3 hematocrit of 32.8 and these values are less than the patient's normal that we have listed from more than 1 year ago. ESR is elevated at 76 CRP elevated 11.1 and chemistries show a lactate of 1.9 electrolytes show a sodium of 136 with a potassium of 3.4 and the kidney and liver function are normal urinalysis is unremarkable. These laboratory values are mostly benign with exception of the elevated inflammatory markers. They do not appear to contribute to a specific diagnosis resulting in altered level of consciousness. We did do additional laboratory studies including a urine tox screen which did not reveal anything surprising. Blood alcohol level less than 10. ED course: Perry Nunez is a 42-year-old male who presented to the emergency department with worsening back pain and confusion 3 days after a back surgery. When he arrived to the emergency department he was confused but without speech latency or delay in execution of motor commands. I was unable to elicit nuchal rigidity on exam. He does have significant bruising and additional erythema consistent with cellulitis to the surgical site. His WBC is normal and the differential is normal. His motor exam is normal. His confusion is not normal. His ESR and CRP are both elevated. A CT of the head was obtained without specific findings. I spoke with his surgeon Dr. Couch at [facility] shortly after arrival of the patient to the ED. He recommended the CT and ESR and CRP and agrees to evaluate the patient at [facility] in the ED. I have spoken to Dr. Diaz ED MD who will accept the patient in transfer after CT. At the time of transfer Dr. Ferguson was on shift and accepts the patient in transfer. At the time of transfer it was noted the blanching erythema to the lateral aspects of the upper portion of the erythema on the back was beginning to fade. I took this as a sign the cellulitis was sensitive to the treatment administered. Departure - Departure Disposition: 02 Transfer Acute Care Hosp Clinical Impression: Altered mental status Qualifiers: Altered mental status type: delirium Qualified Code(s): R41.0 - Disorientation, unspecified Cellulitis Qualifiers: Site of cellulitis: trunk Site of cellulitis of trunk: back Qualified Code(s): L03.312 - Cellulitis of back [any part except buttock] Condition: Fair Discharge Date/Time: 07/15/23 03:24
[2023-07-14] MEDS ORDERED: cefTRIAXone 2 GM in SODIUM CHLORIDE 0.9% MINIBAG 100 ML IV STA (23:46)
[2023-07-14] MEDS ORDERED: VANCOMYCIN INJ 2.5 GM in SODIUM CHLORIDE 0.9% 500 ML IV STA (23:46)
[2023-07-14 23:56] LABS: BASOPHILS # (AUTO) 0.1 10^3/uL (0.0-0.1); BASOPHILS % (AUTO) 0.6 %; EOSINOPHILS # (AUTO) 0.2 10^3/uL (0.0-0.7); EOSINOPHILS % (AUTO) 2.3 %; HCT - HEMATOCRIT 32.8 % (42.0-52.0); HGB - HEMOGLOBIN 11.3 g/dL (14.0-18.0); LYMPHOCYTES # (AUTO) 1.7 10^3/uL (1.5-3.5); LYMPHOCYTES % (AUTO) 18.6 %; MEAN CORPUSCULAR HEMOGLOBIN 30.1 pg (27.0-31.0); MEAN CORPUSCULAR HGB CONC 34.5 g/dL (32.0-36.0); MEAN CORPUSCULAR VOLUME 87.5 fL (80.0-94.0); MEAN PLATELET VOLUME 10.3 fL (7.4-11.4); MONOCYTES # (AUTO) 0.9 10^3/uL (0.0-1.0); MONOCYTES % (AUTO) 9.7 %; NEUTROPHILS # (AUTO) 5.9 10^3/uL (1.5-6.6); PLT - PLATELET COUNT 208 10^3/uL (130-450); RED BLOOD COUNT 3.75 10^6/uL (4.70-6.10); RED CELL DISTRIBUTION WIDTH 13.2 % (12.0-15.0); WHITE BLOOD COUNT 8.9 x10^3/uL (4.8-10.8)
[2023-07-15] MEDS ORDERED: VANCOMYCIN 1 GM VIAL ONE (00:05)
[2023-07-15] MEDS ORDERED: cefTRIAXone 2 GM VIAL ONE (00:05)
[2023-07-15] MEDS ORDERED: KETOROLAC 30 MG/ML VIAL IVP STA (00:19)
--- NOTE | 2023-07-15 00:42 | XRAY Report ---
PROCEDURE: Chest 1 View X-Ray INDICATIONS: Sepsis TECHNIQUE: One view of the chest was acquired. COMPARISON: Chest x-ray 01/31/2014 FINDINGS: Surgical changes and devices: None. Lungs and pleura: No pleural effusions or pneumothorax. Lungs are clear. Mediastinum: Mediastinal contours appear normal. Heart size is normal. Bones and chest wall: No suspicious bony lesions. Overlying soft tissues appear unremarkable. IMPRESSION: No acute cardiopulmonary process. Reviewed by: Dena Gonzalez MD on 07/15/2023 12:41 AM PST Approved by: Dena Gonzalez MD on 07/15/2023 12:41 AM PST Station ID: [id number]
[2023-07-15] MEDS ORDERED: LORazepam 2 MG/ML VIAL IVP STA (01:11)
--- NOTE | 2023-07-15 01:23 | CT Report ---
PROCEDURE: HEAD WO INDICATIONS: altered LOC TECHNIQUE: Noncontrast 4.5 mm thick angled axial sections acquired from the foramen magnum to the vertex. For r adiation dose reduction, the following was used: automated exposure control, adjustment of mA and/or kV according to patient size. COMPARISON: None. FINDINGS: Image quality: Excellent. CSF spaces: Basal cisterns are patent. No extra-axial fluid collections. Ventricles are normal in size and shape. Brain: No midline shift. No intracranial masses or hemorrhage. Patel-white matter interface is norm al. Skull and face: Postsurgical craniotomy changes. Sinuses: Visualized sinuses and mastoids are clear. IMPRESSION: No acute intracranial pathology. Reviewed by: Dena Gonzalez MD on 07/15/2023 1:22 AM [facility] Approved by: Dena Gonzalez MD on 07/15/2023 1:22 AM [facility] Station ID: [id number]
[2023-07-15] MEDS ORDERED: ONDANSETRON 4 MG/2 ML VIAL IVP STA (01:34)
[2023-07-15] MEDS ORDERED: HYDROmorphone 1 MG/ML CARPUJECT IVP STA (01:34)
[2023-07-15] MEDS ORDERED: SODIUM CHLORIDE 0.9% IV STA (01:45)
[2023-07-15 02:00] LABS: BILIRUBIN,URINE NEGATIVE (NEGATIVE); GLUCOSE, URINE (UA) NEGATIVE (NEGATIVE); KETONES,URINE (UA) NEGATIVE (NEGATIVE); LEUKOCYTE ESTERASE, URINE NEGATIVE (NEGATIVE); NITRITE,URINE NEGATIVE (NEGATIVE); OCCULT BLOOD,URINE NEGATIVE (NEGATIVE); PROTEIN,URINE NEGATIVE (NEGATIVE); UROBILINOGEN,URINE 0.2 (NORMAL) E.U./dL (NORMAL)
[2023-07-15 02:04] LABS: ALBUMIN 3.9 g/dL (3.2-5.5); ALBUMIN/GLOBULIN RATIO 1.3 (1.0-2.2); BILIRUBIN,TOTAL 0.5 mg/dL (0.2-1.0); CALCIUM 8.9 mg/dL (8.5-10.3); CREATININE 0.8 mg/dL (0.6-1.3); POTASSIUM 3.4 mmol/L (3.5-4.5); TOTAL PROTEIN 6.8 g/dL (6.4-8.9)
[2023-07-15 02:05] LABS: CLARITY,URINE CLEAR (CLEAR)
[2023-07-15 02:15] LABS: AMPHETAMINE SCREEN,URINE NEGATIVE (NEGATIVE); BARBITURATE SCREEN,UR NEGATIVE (NEGATIVE); BENZODIAZEPINES SCREEN, URINE NEGATIVE (NEGATIVE); BUPRENORPHINE SCREEN, URINE NEGATIVE (NEGATIVE); COCAINE SCREEN URINE NEGATIVE (NEGATIVE); METHADONE SCREEN, URINE NEGATIVE (NEGATIVE); METHAMPHETAMINES SCREEN, URINE NEGATIVE (NEGATIVE); OPIATE SCREEN, URINE NEGATIVE (NEGATIVE); OXYCODONE SCREEN, URINE POSITIVE (NEGATIVE); THC CANNABINOID SCREEN, URINE POSITIVE (NEGATIVE); TRICYCLIC ANTIDEPRESSANT,URINE POSITIVE (NEGATIVE)
[2023-07-15 03:23] VITALS: O2SAT 98
[2023-07-15 03:32] VITALS: BP 157/77
== END 2023-07-15 03:24 | disposition short-term general hospital (02) ==
LOC: EDBD → EDUNIT# → ED 23:21
DX: L03.312 Cellulitis of back [any part except buttock and flank] (principal); R41.0 Disorientation, unspecified; E78.00 Pure hypercholesterolemia, unspecified; Z79.899 Other long term (current) drug therapy
CPT/HCPCS: 36415; 70450; 71045; 80053; 80306; 80320; 81003; 83605; 85025; 85651; 86140; 87040; 96365; 96375; 99285; J1170; J2060; J3370; 81001; 83690; 87086

== ENCOUNTER 2023-07-15 03:21 | Outpatient (CLI) | payer MEDICAID | END 2023-07-15 23:59 | disposition short-term general hospital (02) | LOC: EMS 03:21 | PROVIDERS: ATTEND Emergency Medicine | DX: L03.312 Cellulitis of back [any part except buttock and flank] (principal); G89.18 Other acute postprocedural pain; R41.0 Disorientation, unspecified | CPT/HCPCS: A0425; A0426 ==

== ENCOUNTER 2024-03-08 15:04 | Outpatient (CLI) | payer MEDICAID ==
[2024-03-08 15:27] LABS: BASOPHILS % (AUTO) 0.4 %; EOSINOPHILS # (AUTO) 0.1 10^3/uL (0.0-0.7); EOSINOPHILS % (AUTO) 0.6 %; HCT - HEMATOCRIT 42.1 % (42.0-52.0); HGB - HEMOGLOBIN 14.2 g/dL (14.0-18.0); LYMPHOCYTES # (AUTO) 1.4 10^3/uL (1.5-3.5); LYMPHOCYTES % (AUTO) 15.2 %; MEAN CORPUSCULAR HEMOGLOBIN 29.6 pg (27.0-31.0); MEAN CORPUSCULAR HGB CONC 33.7 g/dL (32.0-36.0); MEAN CORPUSCULAR VOLUME 87.9 fL (80.0-94.0); MEAN PLATELET VOLUME 10.5 fL (7.4-11.4); MONOCYTES # (AUTO) 0.6 10^3/uL (0.0-1.0); MONOCYTES % (AUTO) 6.8 %; NEUTROPHILS # (AUTO) 6.9 10^3/uL (1.5-6.6); NEUTROPHILS % (AUTO) 76.4 %; PLT - PLATELET COUNT 173 10^3/uL (130-450); RED BLOOD COUNT 4.79 10^6/uL (4.70-6.10); RED CELL DISTRIBUTION WIDTH 13.7 % (12.0-15.0); WHITE BLOOD COUNT 9.1 x10^3/uL (4.8-10.8)
[2024-03-08 15:42] LABS: ALBUMIN 4.4 g/dL (3.2-5.5); ALBUMIN/GLOBULIN RATIO 1.5 (1.0-2.2); ALKALINE PHOSPHATASE 105 IU/L (42-121); ALT ALANINE AMINOTRANSFERASE 65 IU/L (10-60); AST ASPARTATE AMINOTRANSFERASE 33 IU/L (10-42); BILIRUBIN,TOTAL 0.5 mg/dL (0.2-1.0); BUN - BLOOD UREA NITROGEN 13 mg/dL (6-20); CALCIUM 9.8 mg/dL (8.5-10.3); CARBON DIOXIDE - CO2 25 mmol/L (21-32); CHLORIDE 102 mmol/L (101-111); CHOL/HDL RATIO 5.2 (<5.0); CHOLESTEROL 196 mg/dL; GFR - MDRD 82 (>89); GLUCOSE 88 mg/dL (74-104); HDL CHOLESTEROL 38 mg/dL; LDL CHOLESTEROL,CALCULATED 101 mg/dL; LDL/HDL RATIO 2.7 (<3.6); POTASSIUM 4.1 mmol/L (3.5-4.5); SODIUM 135 mmol/L (135-145); TOTAL PROTEIN 7.3 g/dL (6.4-8.9); TRIGLYCERIDES 286 mg/dL; VLDL CHOLESTEROL 57 mg/dL
[2024-03-08 15:56] LABS: THYROID STIMULATING HORMONE 2.49 uIU/mL (0.34-5.60)
== END 2024-03-08 15:05 | disposition home or self-care (01) ==
LOC: LAB 15:04
PROVIDERS: ATTEND Physician Assistant
DX: I10 Essential (primary) hypertension (principal); E78.5 Hyperlipidemia, unspecified; Z79.899 Other long term (current) drug therapy
CPT/HCPCS: 36415; 80050; 80061; 83721